=== PATIENT | male | born 1965 | race Caucasian/White ===

== ENCOUNTER 2016-10-30 17:13 | Emergency (ER) | payer BC ==
[2016-10-30 18:27] VITALS: BP 146/90
--- NOTE | 2016-10-30 18:46 | UC ---
HPI Wound/Suture Re-check - HPI Summary HPI Summary: Patient had stitches placed here at on 10/19/16. he fell on a dumpster and sustained a large laceration with an avulsion of the upper portion of the wound. He was rechecked on the and told to return today for the removal of stitches. the periwound is erythemic, Large amount of scabbing present on both edges of the wound but dehisensce is noted in the wound bed. area is tender, yellow slough in the wound bed, edge of the avulsed area is black. - History Of Current Complaint Chief Complaint: UCUpperExtremity Stated Complaint: ARM INJURY Time Seen by Provider: 10/30/16 18:19 Hx Obtained From: Patient Onset/Duration: Sudden Onset, Lasting Days Severity: Moderate - Allergies/Home Medications Allergies/Adverse Reactions: Allergies Allergy/AdvReac Type Severity Reaction Status Date / Time Penicillins Allergy Unknown Verified 10/30/16 18:25 Reaction Details Seasonal and Environmental Allergy Congestion Uncoded 10/30/16 18:25 Allergie PMH/Surg Hx/FS Hx/Imm Hx Previously Healthy: Yes Endocrine History Of: Denies: Diabetes, Thyroid Disease Cardiovascular History Of: Denies: Cardiac Disorders, Hypertension Respiratory History Of: Denies: COPD, Asthma GI/ History Of: Denies: Ulcer - Surgical History Surgical History: None - Family History Known Family History: Negative: Cardiac Disease, Hypertension - Social History Alcohol Use: Occasionally Substance Use Type: None Smoking Status (MU): Never Smoked Tobacco - Immunization History Most Recent Tetanus Shot: UTD Review of Systems Constitutional: Negative Skin: Other - 3 cm wound on right side of rib cage Eyes: Negative ENT: Negative Respiratory: Negative Cardiovascular: Negative Gastrointestinal: Negative Genitourinary: Negative Motor: Negative Neurovascular: Negative Musculoskeletal: Negative Neurological: Negative Psychological: Negative All Other Systems Reviewed And Are Negative: Yes Physical Exam Triage Information Reviewed: Yes Appearance: Well-Appearing, Well-Nourished, Pain Distress Vital Signs: Initial Vital Signs Temp 98.1 F 10/30/16 18:18 Pulse 76 10/30/16 18:18 Resp 16 10/30/16 18:18 BP 146/90 10/30/16 18:18 Pulse Ox 97 10/30/16 18:18 Vital Signs Reviewed: Yes Eye Exam: Normal Eyes: Positive: Conjunctiva Clear ENT Exam: Normal ENT: Positive: Hearing grossly normal, Pharynx normal, TMs normal Dental Exam: Normal Neck exam: Normal Neck: Positive: Supple, Nontender, No Lymphadenopathy Respiratory Exam: Normal Respiratory: Positive: Chest non-tender, Lungs clear, Normal breath sounds Cardiovascular Exam: Normal Cardiovascular: Positive: RRR, No Murmur, Pulses Normal Abdominal Exam: Normal Abdomen Description: Positive: Nontender, No Organomegaly, Soft Bowel Sounds: Positive: Present Musculoskeletal Exam: Normal Musculoskeletal: Positive: Strength Intact, ROM Intact, No Edema Neurological Exam: Normal Neurological: Positive: Alert, Muscle Tone Normal Psychological Exam: Normal Skin: Positive: Other Course/Dx - Differential Dx - Laceration/Wound Differential Diagnoses: Cellulitis, Dehiscence, Healing Wound, Joint Infection, Suture Removal, Tenosynovitis Provider Diagnoses: wound dehiscence. suture removal Discharge - Discharge Plan Condition: Stable Disposition: HOME Patient Education Materials: Wound Dehiscence (ED) Referrals: Sneha Taylor MD [Primary Care Provider] -
--- NOTE | 2016-10-30 19:32 | UC ---
Upper Extremity HPI - HPI Summary HPI Summary: Patient was shoveling snow 2 weeks ago, had a pulled muscle he thought, the pain is persistant in the front of the upper arm, he hears alot of clicking and it feels deep. - History of Current Complaint Chief Complaint: UCUpperExtremity Stated Complaint: ARM INJURY Time Seen by Provider: 10/30/16 18:19 Hx Obtained From: Patient ?: No Onset/Duration: Sudden Onset, Lasting Weeks Severity Initially: Moderate Severity Currently: Moderate Location Of Pain: Is Discrete @ - upper right shoulder Character: Dull, Aching Aggravating Factor(s): Movement, Flexion Alleviating Factor(s): Nothing Associated Signs And Symptoms: Positive: Negative - Allergies/Home Medications Allergies/Adverse Reactions: Allergies Allergy/AdvReac Type Severity Reaction Status Date / Time Penicillins Allergy Unknown Verified 10/30/16 18:25 Reaction Details Seasonal and Environmental Allergy Congestion Uncoded 10/30/16 18:25 Allergie PMH/Surg Hx/FS Hx/Imm Hx Previously Healthy: Yes Endocrine History Of: Denies: Diabetes, Thyroid Disease Cardiovascular History Of: Denies: Cardiac Disorders, Hypertension Respiratory History Of: Denies: COPD, Asthma GI/ History Of: Denies: Ulcer - Surgical History Surgical History: None - Family History Known Family History: Negative: Cardiac Disease, Hypertension - Social History Alcohol Use: Occasionally Substance Use Type: None Smoking Status (MU): Never Smoked Tobacco - Immunization History Most Recent Tetanus Shot: UTD Review of Systems Constitutional: Negative Skin: Negative Eyes: Negative ENT: Negative Respiratory: Negative Cardiovascular: Negative Gastrointestinal: Negative Genitourinary: Negative Motor: Negative Neurovascular: Negative Musculoskeletal: Arthralgia, Myalgia Neurological: Negative Psychological: Negative All Other Systems Reviewed And Are Negative: Yes Physical Exam Triage Information Reviewed: Yes Appearance: Well-Appearing, Well-Nourished, Pain Distress Vital Signs: Initial Vital Signs Temp 98.1 F 10/30/16 18:18 Pulse 76 10/30/16 18:18 Resp 16 10/30/16 18:18 BP 146/90 10/30/16 18:18 Pulse Ox 97 10/30/16 18:18 Vital Signs Reviewed: Yes Eye Exam: Normal Eyes: Positive: Conjunctiva Clear ENT Exam: Normal ENT: Positive: Normal ENT inspection, Hearing grossly normal, Pharynx normal, TMs normal Dental Exam: Normal Neck exam: Normal Neck: Positive: Supple, Nontender, No Lymphadenopathy Respiratory Exam: Normal Respiratory: Positive: Chest non-tender, Lungs clear, Normal breath sounds Cardiovascular Exam: Normal Cardiovascular: Positive: RRR, No Murmur, Pulses Normal Abdominal Exam: Normal Abdomen Description: Positive: Nontender, No Organomegaly, Soft Bowel Sounds: Positive: Present Musculoskeletal: Positive: No Edema, ROM Limited @ - due to pain in shoulder flexion, increased with a bent elbow. + speeds test. PROM is pain free Neurological Exam: Normal Neurological: Positive: Alert, Muscle Tone Normal Psychological Exam: Normal Skin Exam: Normal Upper Extremity Course/Dx - Course Course Of Treatment: hx obtained, exam performed, muscle testing performed, educated on stretching and pain management. meloxicam prescribed. - Differential Dx/Diagnosis Provider Diagnoses: biceps tendonitis. shoulder pain Discharge - Discharge Plan Condition: Stable Disposition: HOME Patient Education Materials: Tendinitis (ED) Referrals: Sneha Taylor MD [Primary Care Provider] - Additional Instructions: 1. take the meloxicam once a day 2. Stretch the arm see the following videos for stretching (youtube search) Navid Raman 3. Heat the area 20 minutes as a time as needed. 4. pain after activity you can ice if necessary
== END 2016-10-30 19:48 | disposition home or self-care (01) ==
LOC: UCEAST 17:13
DX: M75.21 Bicipital tendinitis, right shoulder (principal); M79.621 Pain in right upper arm; Z88.0 Allergy status to penicillin
CPT/HCPCS: 99213; G0463

== ENCOUNTER 2018-06-22 16:56 | Emergency (ER) | payer BC ==
[2018-06-22 17:29] VITALS: BP 149/98
--- NOTE | 2018-06-22 20:17 | UC ---
Skin Complaint HPI - HPI Summary HPI Summary: 4 DAYS OF INCREASING PAIN, REDNESS AND SWELLING LEFT GREAT TOE. INITIALLY TOUGH IT MIGHT BE GOUT HE HAS HAD THIS IN THE PAST. STARTED HYDRATING AGGRESSIVELY AND TAKING IBUPROFEN WITH NO IMPROVEMENT IN SYMPTOMS. YESTERDAY NOTICED A SMALL WHITE AREA AT CUTICLE. TODAY IS MUCH BIGGER. - History of Current Complaint Chief Complaint: UCSkin Time Seen by Provider: 06/22/18 17:24 Stated Complaint: SORE Toe Hx Obtained From: Patient Onset/Duration: Gradual Onset, Lasting Days, Still Present Timing: Constant Onset Severity: Moderate Current Severity: Moderate Pain Intensity: 1 Pain Scale Used: 0-10 Numeric Location: Foot (Left) - LEFT GREAT TOE Character: Swelling, Pain, Redness Aggravating Factor(s): Touch Alleviating Factor(s): Nothing Associated Signs & Symptoms: Positive: Tenderness. Negative: Nausea, Fever - Allergy/Home Medications Allergies/Adverse Reactions: Allergies Allergy/AdvReac Type Severity Reaction Status Date / Time Seasonal and Environmental Allergy Congestion Uncoded 06/22/18 17:21 Allergie Review of Systems All Other Systems Reviewed And Are Negative: Yes Skin: Positive: Other - ERYTHEMA AND VISIBLE PUS POCKET LEFT GREAT TOE Respiratory: Positive: Negative Cardiovascular: Positive: Negative Gastrointestinal: Positive: Negative Musculoskeletal: Positive: Arthralgia, Decreased ROM, Edema PMH/Surg Hx/FS Hx/Imm Hx Previously Healthy: Yes - Surgical History Surgical History: None Surgery Procedure, Year, and Place: [facility] - Family History Known Family History: Negative: Cardiac Disease, Hypertension - Social History Alcohol Use: Occasionally Substance Use Type: None Smoking Status (MU): Never Smoked Tobacco - Immunization History Most Recent Tetanus Shot: UTD Physical Exam Triage Information Reviewed: Yes Appearance: Well-Appearing, No Pain Distress, Well-Nourished Vital Signs: Initial Vital Signs Temp 97.6 F 06/22/18 17:16 Pulse 74 06/22/18 17:16 Resp 18 06/22/18 17:16 BP 149/98 06/22/18 17:16 Pulse Ox 98 06/22/18 17:16 Vital Signs Reviewed: Yes Eyes: Positive: Conjunctiva Clear ENT: Positive: Hearing grossly normal Neck: Positive: Supple Respiratory: Positive: No respiratory distress, No accessory muscle use Cardiovascular: Positive: Pulses Normal Musculoskeletal: Positive: ROM Limited @ - LEFT GREAT TOE, Edema @ - LFT GREAT TOE, Other: - LEFT GREAT TOE EDEMATOUS WITH ERYTHEMA AT CUTICLE WITH LARGE VISIBLE POCKET OF PUS Neurological: Positive: Alert Psychological: Positive: Age Appropriate Behavior Skin: Positive: Other - ERYTHEMA AND PURULENCE LEFT GREAT TOE AT NAILBED/ CUTICLE. Negative: Rashes Course/Dx - Course Course Of Treatment: 11 BLADE USED TO PUNCTURE PARONYCHIA WITH <2ML PURULENT MATERIAL EXPRESSED. SPECIMEN SENT FOR CULTURE. PT STATES HE DOES NOT WANT TO TAKE ABX SO IS GOING TO TRY HOT SOAKS THROUGHOUT THE DAY. KEFLEX SENT TO PHARMACY. PT STATES HE WILL START IT IF HE IS NOT IMPROVING OVER THE NEXT 24-48 HOURS. - Diagnoses Provider Diagnoses: LEFT GREAT TOE PARONYCHIA Discharge - Sign-Out/Discharge Documenting (check all that apply): Patient Departure All imaging exams completed and their final reports reviewed: No Studies - Discharge Plan Condition: Stable Disposition: HOME Prescriptions: Cephalexin CAP* [Keflex 500 CAP*] 1,000 mg PO BID #28 cap Patient Education Materials: Paronychia (ED) Referrals: Sneha Taylor MD [Primary Care Provider] - If Needed Additional Instructions: WARM/HOT COMPRESSES/SOAKS AT LEAST 4 TIMES DAILY. IF YOU DO NOT SEE CLEAR IMPROVEMENT OVER THE NEXT 24-48 HOURS START THE ANTIBIOTIC. IF YOU START THE ANTIBIOTIC TAKE IT FOR THE FULL 7 DAYS. OTC MEDS NEEDED FOR DISCOMFORT. SEEK FOLLOW-UP IF YOU'RE NOT IMPROVING EXPECTED WITH MEDICATION. SPECIMEN SENT FOR CULTURE ALLOW THE TOE TO BREATHE MUCH POSSIBLE. WOULD RECOMMEND YOU AVOID WEARING CLOSED TOED SHOES ALL DAY. WHILE AT WORK KEEP TOE COVERED WITH A NONSTICK BANDAGE AND A LIGHT GAUZE DRESSING. YOU MAY WEAR A SOCK AND AN OPEN TOE SANDAL. - Billing Disposition and Condition Condition: STABLE Disposition: Home
--- NOTE | 2018-06-26 16:54 | UC ---
- Progress Note Progress Note: Lab results come back from June 22, 2018 of a paronychia. Shows staph aureus that BY deduction is resistant to cefazolin. Patient went home on CEFAZOLIN. Nursing to call patient if patient is completely improved there is no need to change the antibiotic however if he still having the infection then we will need to call in a different antibiotic. Course/Dx - Diagnoses Provider Diagnoses: Paronychia Discharge - Sign-Out/Discharge Documenting (check all that apply): Patient Departure All imaging exams completed and their final reports reviewed: No Studies - Discharge Plan Condition: Stable Disposition: HOME Prescriptions: Cephalexin CAP* [Keflex 500 CAP*] 1,000 mg PO BID #28 cap Patient Education Materials: Paronychia (ED) Referrals: Sneha Taylor MD [Primary Care Provider] - If Needed Additional Instructions: WARM/HOT COMPRESSES/SOAKS AT LEAST 4 TIMES DAILY. IF YOU DO NOT SEE CLEAR IMPROVEMENT OVER THE NEXT 24-48 HOURS START THE ANTIBIOTIC. IF YOU START THE ANTIBIOTIC TAKE IT FOR THE FULL 7 DAYS. OTC MEDS NEEDED FOR DISCOMFORT. SEEK FOLLOW-UP IF YOU'RE NOT IMPROVING EXPECTED WITH MEDICATION. SPECIMEN SENT FOR CULTURE ALLOW THE TOE TO BREATHE MUCH POSSIBLE. WOULD RECOMMEND YOU AVOID WEARING CLOSED TOED SHOES ALL DAY. WHILE AT WORK KEEP TOE COVERED WITH A NONSTICK BANDAGE AND A LIGHT GAUZE DRESSING. YOU MAY WEAR A SOCK AND AN OPEN TOE SANDAL. - Billing Disposition and Condition Condition: STABLE Disposition: Home
--- NOTE | 2018-06-28 15:18 | UC ---
- Progress Note Progress Note: will d/c keflex and change to clindamycin 300mg po qid for 7 days Course/Dx - Diagnoses Provider Diagnoses: Paronychia Discharge - Sign-Out/Discharge Documenting (check all that apply): Post-Discharge Follow Up All imaging exams completed and their final reports reviewed: No Studies - Discharge Plan Condition: Stable Disposition: HOME Prescriptions: Cephalexin CAP* [Keflex 500 CAP*] 1,000 mg PO BID #28 cap Patient Education Materials: Paronychia (ED) Referrals: Sneha Taylor MD [Primary Care Provider] - If Needed Additional Instructions: WARM/HOT COMPRESSES/SOAKS AT LEAST 4 TIMES DAILY. IF YOU DO NOT SEE CLEAR IMPROVEMENT OVER THE NEXT 24-48 HOURS START THE ANTIBIOTIC. IF YOU START THE ANTIBIOTIC TAKE IT FOR THE FULL 7 DAYS. OTC MEDS NEEDED FOR DISCOMFORT. SEEK FOLLOW-UP IF YOU'RE NOT IMPROVING EXPECTED WITH MEDICATION. SPECIMEN SENT FOR CULTURE ALLOW THE TOE TO BREATHE MUCH POSSIBLE. WOULD RECOMMEND YOU AVOID WEARING CLOSED TOED SHOES ALL DAY. WHILE AT WORK KEEP TOE COVERED WITH A NONSTICK BANDAGE AND A LIGHT GAUZE DRESSING. YOU MAY WEAR A SOCK AND AN OPEN TOE SANDAL. - Billing Disposition and Condition Condition: STABLE Disposition: Home
== END 2018-06-22 18:02 | disposition home or self-care (01) ==
LOC: UCEAST 16:56
DX: L03.032 Cellulitis of left toe (principal); B95.61 Methicillin susceptible Staphylococcus aureus infection as the cause of diseases classified elsewhere; Z16.19 Resistance to other specified beta lactam antibiotics
CPT/HCPCS: 10060; 87070; 87077; 87186; 87205; 87640; 87641; 99212; G0463

== ENCOUNTER 2018-07-06 12:11 | Emergency (ER) | payer BC ==
[2018-07-06 12:25] VITALS: BP 147/100
--- NOTE | 2018-07-06 12:31 | UC ---
Skin Complaint HPI - HPI Summary HPI Summary: 53 male presents with concerns about left great toe infection. He tells me that on 06/22 he was seen here and dx'd with paronychia at his left great toe. The area was lanced and purulent matter was expressed. He was placed on keflex, which he never took. A few days later our clinic called him with culture results showing resistance to keflex and started him on clindamycin. Pt completed course of clindamycin. Here today because there is still redness to his toe. No pain. No drainage. Denies fever or chills. - History of Current Complaint Chief Complaint: UCSkin Time Seen by Provider: 07/06/18 12:27 Stated Complaint: L TOE COMPLAINT Hx Obtained From: Patient Onset/Duration: Gradual Onset Onset Severity: Moderate Current Severity: Mild Pain Intensity: 1 Pain Scale Used: 0-10 Numeric - Allergy/Home Medications Allergies/Adverse Reactions: Allergies Allergy/AdvReac Type Severity Reaction Status Date / Time Seasonal and Environmental Allergy Congestion Uncoded 07/06/18 12:54 Allergie PMH/Surg Hx/FS Hx/Imm Hx - Additional Past Medical History Additional PMH: None - Surgical History Surgical History: None Surgery Procedure, Year, and Place: [facility] - Family History Known Family History: Negative: Cardiac Disease, Hypertension - Social History Occupation: Employed Full-time Lives: With Family Alcohol Use: Occasionally Substance Use Type: None Smoking Status (MU): Never Smoked Tobacco - Immunization History Most Recent Tetanus Shot: UTD Review of Systems All Other Systems Reviewed And Are Negative: Yes Constitutional: Positive: Negative Skin: Positive: Other - Left great toe redness Respiratory: Positive: Negative Cardiovascular: Positive: Negative Neurovascular: Positive: Negative Neurological: Positive: Negative Psychological: Positive: Negative Physical Exam - Summary Physical Exam Summary: GENERAL: NAD. WDWN. No pain distress. SKIN: LEFT GREAT TOE: Mild pink healing tissue at lateral aspect of nail and at base. No erythema, drainage, edema, or purulent matter. No streaking. NTTP. NECK: Supple. Nontender. No lymphadenopathy. CHEST: No accessory muscle use. Breathing comfortably and in no distress. CV: Pulses intact. Cap refill <2seconds NEURO: Alert. PSYCH: Age appropriate behavior. Triage Information Reviewed: Yes Vital Signs: Initial Vital Signs Temp 96.8 F 07/06/18 12:19 Pulse 75 07/06/18 12:19 Resp 18 07/06/18 12:19 BP 147/100 07/06/18 12:19 Pulse Ox 100 07/06/18 12:19 Vital Signs Reviewed: Yes Course/Dx - Course Course Of Treatment: Toe appears to be healing well without evidence of infection. Reassured pt that this may take awhile to fully heal. Advised to keep healing tissue covered with neosporin and a band-aid. - Diagnoses Provider Diagnosis: Paronychia of great toe, left Discharge - Sign-Out/Discharge Documenting (check all that apply): Patient Departure All imaging exams completed and their final reports reviewed: No Studies - Discharge Plan Condition: Stable Disposition: HOME Patient Education Materials: Paronychia (ED) Referrals: Sneha Taylor MD [Primary Care Provider] - Additional Instructions: If you develop a fever, shortness of breath, chest pain, new or worsening symptoms - please call your PCP or go to the ED. Your blood pressure was high at todays visit. Please see your primary provider within 4 weeks for recheck and re-evaluation. 1) Your toe appears to be healing very well. You may want to keep it covered with a band-aid when wearing socks/shoes to protect the healing skin. - Billing Disposition and Condition Condition: STABLE Disposition: Home
== END 2018-07-06 12:52 | disposition home or self-care (01) ==
LOC: UCEAST 12:11
DX: L03.032 Cellulitis of left toe (principal)
CPT/HCPCS: 99211; G0463